=== PATIENT | female | born 1960 | race Caucasian/White ===

== ENCOUNTER → 2022-07-16 | Outpatient (CLI) | payer BC | LOC: MAMMO 11:27 | PROVIDERS: ATTEND Family Medicine | DX: Z12.31 Encounter for screening mammogram for malignant neoplasm of breast (principal) | CPT/HCPCS: 77067 ==

== ENCOUNTER → 2023-11-29 | Outpatient (REF) | payer BC | LOC: MAMMO 15:39 | PROVIDERS: ATTEND Family Medicine | DX: Z12.31 Encounter for screening mammogram for malignant neoplasm of breast (principal) | CPT/HCPCS: 77067 ==

== ENCOUNTER 2024-03-24 09:07 | Inpatient (IN) | payer BC, MEDICARE ==
[~2024-03-24] VITALS: Ht 170.2 cm; Wt 82.1 kg
[2024-03-24 09:42] LABS: BASOPHILS % 0.3 % (0.0-1.0); EOSINOPHILS % 0.4 % (0.0-6.0); HEMATOCRIT 39.4 % (34.2-44.1); HEMOGLOBIN 12.6 g/dL (12.0-16.0); LYMPHOCYTES # (AUTO) 1.2 (1.0-3.2); LYMPHOCYTES % 11.3 % (18.0-39.1); MEAN CORPUSCULAR HEMOGLOBIN 31.3 pg (28-32); MONOCYTES # (AUTO) 0.2 (0.2-0.8); MONOCYTES % 2.1 % (4.4-11.3); NEUTROPHILS % 85.5 % (38.7-80.0); PLATELET COUNT 263 x10e3/uL (140-360); RED BLOOD COUNT 4.02 x10e6/uL (3.6-5.1); RED CELL DISTRIBUTION WIDTH 12.5 % (11.7-14.4)
[2024-03-24 10:04] LABS: INR 0.91; PROTHROMBIN TIME 12.8 seconds (11.9-14.5)
[2024-03-24] MEDS: ONDANSETRON HCL INJ 2MG/ML 2ML 2 MG/ML VIAL IV STA ×2 (10:04→12:26)
[2024-03-24 10:05] LABS: PARTIAL THROMBOPLASTIN TIME 35.1 seconds (23.8-35.5)
[2024-03-24] MEDS: HYDROMORPHONE 1MG/1ML INJ IV STA ×3 (10:05→12:26)
[2024-03-24] MEDS: SODIUM CHLORIDE 0.9% 1000ML 1,000 ML IV STA (10:05)
[2024-03-24 10:10] LABS: ALANINE AMINOTRANSFERASE 22 IU/L (0-55); ALBUMIN/GLOBULIN RATIO 1.1 (0.8-2.0); ALKALINE PHOSPHATASE 64 IU/L (40-150); ANION GAP 17.8 mmol/L (8-16); BILIRUBIN,TOTAL 0.3 mg/dL (0.2-1.2); BLOOD UREA NITROGEN 14 mg/dL (7-26); BUN/CREATININE RATIO 18 (6-25); CALCIUM 10.2 mg/dL (8.4-10.2); CARBON DIOXIDE 18 mmol/L (22-29); CHLORIDE 106 mmol/L (98-107); CREATINE KINASE 50 IU/L (29-168); EST GLOMERULAR FILTRATION RATE 82 ML/MIN (>=60); GLUCOSE 224 mg/dL (74-118); LIPASE 55 U/L (8-78); MAGNESIUM 1.8 MG/DL (1.3-2.1); POTASSIUM 3.8 mmol/L (3.5-5.1); SODIUM 138 mmol/L (136-145); TOTAL PROTEIN 7.5 g/dL (6.5-8.1)
[2024-03-24 10:14] LABS: TROPONIN I < 0.05 ng/mL (0.0-0.40)
[2024-03-24] MEDS ORDERED: IOPAMIDOL 370 MG/ML 100 ML INFUS..BTL INJ ONE (10:23)
[2024-03-24] MEDS: DICYCLOMINE HCL 20 MG/2 ML VIAL IM ONE (12:26)
[2024-03-24] MEDS ORDERED: BISACODYL 10 MG SUPP PR PRN (12:30)
[2024-03-24] MEDS ORDERED: DEXTROSE 50% SYRINGE 50 ML IV PRN (12:30)
[2024-03-24] MEDS ORDERED: ONDANSETRON HCL INJ 2MG/ML 2ML 2 MG/ML VIAL IV PRN (12:30)
[2024-03-24] MEDS ORDERED: POLYETHYLENE GLYCOL 3350 17 GM PACK PO PRN (12:30)
[2024-03-24] MEDS ORDERED: ACETAMINOPHEN 325 MG TAB PO PRN (12:30)
[2024-03-24 12:34] VITALS: PULSE 67; RESP 16; TEMP 98.4
[2024-03-24] MEDS ORDERED: HYDROMORPHONE 1MG/1ML INJ IV PRN (12:45)
[2024-03-24] MEDS: SODIUM CHLORIDE 0.9% 1000ML 1,000 ML IV SCH (13:11)
[2024-03-24] MEDS: KETOROLAC TROMETHAMINE 30 MG/ML VIAL IV PRN (14:05)
[2024-03-24 15:42] VITALS: BP 149/70; PULSE 84; RESP 17; TEMP 98.9; O2SAT 98
[2024-03-24] MEDS: ONDANSETRON HCL INJ 2MG/ML 2ML 2 MG/ML VIAL IV PRN (16:17)
[2024-03-24] MEDS: HYDROMORPHONE 1MG/1ML INJ IV PRN (16:17)
[2024-03-24] MEDS: ENOXAPARIN SOD INJ 40 MG/0.4 ML SYR SC SCH (16:18)
[2024-03-24] MEDS: INSULIN LISPRO 100 UNIT/1 ML 3ML VIAL SQ SCH (16:22)
[2024-03-24 16:47] VITALS: BP 149/70; PULSE 84; RESP 17; TEMP 98.9; O2SAT 98
[2024-03-24 17:04] VITALS: BP 149/70; PULSE 84; RESP 17; TEMP 98.9; O2SAT 98
[2024-03-24 20:00] VITALS: BP 120/65; PULSE 88; RESP 20; TEMP 98.6; O2SAT 100
[2024-03-24] MEDS: CRESTOR 10MG PO SCH (21:22)
[2024-03-25] VITALS (9 sets, daily range): BP systolic 90–126; BP diastolic 48–70; PULSE 82–95; RESP 16–21; TEMP 97.9–100.1; O2SAT 96–100
[2024-03-25 06:18] LABS: BASOPHILS % 0.2 % (0.0-1.0); EOSINOPHILS % 0.2 % (0.0-6.0); HEMATOCRIT 33.6 % (34.2-44.1); HEMOGLOBIN 10.4 g/dL (12.0-16.0); LYMPHOCYTES % 16.9 % (18.0-39.1); MEAN CORPUSCULAR HEMOGLOBIN 31.1 pg (28-32); MEAN CORPUSCULAR VOLUME 100.6 fL (81-99); MONOCYTES % 8.9 % (4.4-11.3); NEUTROPHILS # (AUTO) 8.5 (2.1-6.9); NEUTROPHILS % 73.4 % (38.7-80.0); PLATELET COUNT 199 x10e3/uL (140-360); RED BLOOD COUNT 3.34 x10e6/uL (3.6-5.1); RED CELL DISTRIBUTION WIDTH 12.8 % (11.7-14.4); WHITE BLOOD COUNT 11.63 x10e3/uL (4.8-10.8)
[2024-03-25] MEDS: LEVOTHYROXINE SODIUM 100 MCG TAB PO SCH (06:32)
[2024-03-25 06:41] LABS: ALBUMIN/GLOBULIN RATIO 1.2 (0.8-2.0); ANION GAP 12.8 mmol/L (8-16); BILIRUBIN,TOTAL 0.4 mg/dL (0.2-1.2); CALCIUM 8.6 mg/dL (8.4-10.2); CREATININE, SERUM 0.73 mg/dL (0.57-1.11); MAGNESIUM 1.7 MG/DL (1.3-2.1); POTASSIUM 3.8 mmol/L (3.5-5.1); TOTAL PROTEIN 5.6 g/dL (6.5-8.1)
[2024-03-25 07:09] LABS: TROPONIN I 0.284 ng/mL (0-0.300)
[2024-03-25] MEDS: DOCUSATE SODIUM 100 MG CAP PO SCH (08:05)
[2024-03-25] MEDS: BUPROPION HCL 150 MG TABCR PO SCH (08:05)
[2024-03-25] MEDS: SENNOSIDES 8.6 MG TAB PO SCH (08:05)
[2024-03-25] MEDS: LISINOPRIL 20 MG TAB PO SCH (08:05)
[2024-03-25] MEDS: HYDROCHLOROTHIAZIDE 25 MG TAB PO SCH (08:06)
[2024-03-25 16:40] LABS: TROPONIN I 0.2 ng/mL (0-0.300)
[2024-03-26] VITALS (8 sets, daily range): BP systolic 85–110; BP diastolic 46–80; PULSE 79–160; RESP 18; TEMP 98.1–100.1; O2SAT 95–100
[2024-03-26 05:41] LABS: BASOPHILS % 0.3 % (0.0-1.0); EOSINOPHILS # (AUTO) 0.1 (0.0-0.4); EOSINOPHILS % 0.4 % (0.0-6.0); HEMATOCRIT 30.8 % (34.2-44.1); HEMOGLOBIN 9.3 g/dL (12.0-16.0); LYMPHOCYTES % 17.9 % (18.0-39.1); MEAN CORPUSCULAR HGB CONC 30.2 g/dL (31-35); MEAN CORPUSCULAR VOLUME 102.7 fL (81-99); MONOCYTES # (AUTO) 1.1 (0.2-0.8); NEUTROPHILS # (AUTO) 8.1 (2.1-6.9); PLATELET COUNT 173 x10e3/uL (140-360); RED CELL DISTRIBUTION WIDTH 13.2 % (11.7-14.4); WHITE BLOOD COUNT 11.36 x10e3/uL (4.8-10.8)
[2024-03-26 06:00] LABS: ANION GAP 12.7 mmol/L (8-16); CALCIUM 8.3 mg/dL (8.4-10.2); CREATININE, SERUM 1.16 mg/dL (0.57-1.11); POTASSIUM 3.7 mmol/L (3.5-5.1)
[2024-03-26 11:02] LABS: FERRITIN 281.2 ng/mL (4.63-204.00)
[2024-03-26 11:26] LABS: FOLATE 10.1 ng/mL (7.0-15.4)
[2024-03-26] MEDS: SODIUM CHLORIDE 0.9% 500ML 500 ML IV ONE (11:53)
[2024-03-27 03:36] VITALS: BP 92/56; PULSE 74; RESP 18; TEMP 98.7; O2SAT 99
[2024-03-27 05:31] LABS: BASOPHILS % 0.2 % (0.0-1.0); EOSINOPHILS # (AUTO) 0.1 (0.0-0.4); EOSINOPHILS % 0.8 % (0.0-6.0); HEMATOCRIT 27.6 % (34.2-44.1); HEMOGLOBIN 8.3 g/dL (12.0-16.0); LYMPHOCYTES # (AUTO) 1.4 (1.0-3.2); MEAN CORPUSCULAR HEMOGLOBIN 30.5 pg (28-32); MEAN CORPUSCULAR HGB CONC 30.1 g/dL (31-35); MEAN CORPUSCULAR VOLUME 101.5 fL (81-99); MONOCYTES # (AUTO) 0.8 (0.2-0.8); MONOCYTES % 9.2 % (4.4-11.3); NEUTROPHILS # (AUTO) 6.6 (2.1-6.9); NEUTROPHILS % 73.5 % (38.7-80.0); PLATELET COUNT 171 x10e3/uL (140-360); RED BLOOD COUNT 2.72 x10e6/uL (3.6-5.1); RED CELL DISTRIBUTION WIDTH 13.1 % (11.7-14.4); WHITE BLOOD COUNT 8.98 x10e3/uL (4.8-10.8)
[2024-03-27 05:51] LABS: ALBUMIN 2.3 g/dL (3.5-5.0); ALBUMIN/GLOBULIN RATIO 0.8 (0.8-2.0); ANION GAP 12.3 mmol/L (8-16); BILIRUBIN,TOTAL 0.7 mg/dL (0.2-1.2); CREATININE, SERUM 0.87 mg/dL (0.57-1.11); MAGNESIUM 1.8 MG/DL (1.3-2.1); TOTAL PROTEIN 5.3 g/dL (6.5-8.1)
[2024-03-27 05:52] LABS: POTASSIUM 3.3 mmol/L (3.5-5.1)
[2024-03-27 12:15] VITALS: BP 112/57; PULSE 83; RESP 19; TEMP 98.8; O2SAT 98
[2024-03-27] MEDS ORDERED: LIDOCAINE HCL 2% LOCAL INJ 5 ML SDV VIAL INJ ONE (13:29)
[2024-03-27] MEDS ORDERED: PROPOFOL IV EMULSION 10 MG/ML 20 ML VIAL ONE (13:29)
[2024-03-27] MEDS ORDERED: SUCCINYLCHOLINE CHLORIDE 20 MG/ML 10ML VIAL ONE ×2 (13:29→13:33)
[2024-03-27] MEDS ORDERED: ROCURONIUM BROMIDE 1 ML IV ONE (13:29)
[2024-03-27] MEDS ORDERED: FENTANYL CITRATE/PF 100MCG/2 ML INJ ONE (13:30)
[2024-03-27] MEDS ORDERED: ACETAMINOPHEN 1000 MG/100 ML 100 ML IV ONE (13:33)
[2024-03-27] MEDS ORDERED: SEVOFLURANE INHAL SOLN 250 ML PEN BTL ONE (13:33)
[2024-03-27] MEDS ORDERED: FAMOTIDINE 20 MG/2 ML VIAL IV ONE (14:52)
[2024-03-27] MEDS ORDERED: ONDANSETRON HCL INJ 2MG/ML 2ML 2 MG/ML VIAL ONE (14:52)
[2024-03-27] MEDS ORDERED: SUGAMMADEX SODIUM 200 MG/2 ML VIAL IV ONE (14:59)
[2024-03-27] MEDS ORDERED: TRAMADOL HCL 50 MG TAB PO PRN (16:15)
[2024-03-27] MEDS ORDERED: ACETAMINOPHEN 1000 MG/100 ML IV PRN (16:15)
[2024-03-27 20:00] VITALS: BP 124/61; PULSE 77; RESP 17; TEMP 97.6; O2SAT 99
[2024-03-27] MEDS: HYDROMORPHONE 1MG/1ML INJ IV PRN (20:30)
[2024-03-27 20:36] VITALS: BP 124/61; PULSE 77; RESP 17; TEMP 97.5; O2SAT 99
[2024-03-28 00:27] VITALS: BP 107/62; PULSE 70; RESP 17; TEMP 97.8; O2SAT 100
[2024-03-28 04:08] VITALS: BP 113/64; PULSE 82; RESP 17; TEMP 98.7; O2SAT 100
[2024-03-28 06:09] LABS: BASOPHILS % 0.6 % (0.0-1.0); EOSINOPHILS # (AUTO) 0.1 (0.0-0.4); EOSINOPHILS % 1.3 % (0.0-6.0); HEMATOCRIT 26.9 % (34.2-44.1); HEMOGLOBIN 8.1 g/dL (12.0-16.0); LYMPHOCYTES # (AUTO) 1.4 (1.0-3.2); MEAN CORPUSCULAR HEMOGLOBIN 30.6 pg (28-32); MEAN CORPUSCULAR HGB CONC 30.1 g/dL (31-35); MEAN CORPUSCULAR VOLUME 101.5 fL (81-99); MONOCYTES # (AUTO) 0.6 (0.2-0.8); MONOCYTES % 8.9 % (4.4-11.3); NEUTROPHILS # (AUTO) 4.8 (2.1-6.9); NEUTROPHILS % 68.9 % (38.7-80.0); PLATELET COUNT 191 x10e3/uL (140-360); RED BLOOD COUNT 2.65 x10e6/uL (3.6-5.1); RED CELL DISTRIBUTION WIDTH 13.1 % (11.7-14.4); WHITE BLOOD COUNT 6.99 x10e3/uL (4.8-10.8)
[2024-03-28 06:38] LABS: ALBUMIN 2.2 g/dL (3.5-5.0); ALBUMIN/GLOBULIN RATIO 0.7 (0.8-2.0); ANION GAP 14.4 mmol/L (8-16); BILIRUBIN,TOTAL 0.5 mg/dL (0.2-1.2); CALCIUM 8.1 mg/dL (8.4-10.2); CREATININE, SERUM 0.82 mg/dL (0.57-1.11); POTASSIUM 3.4 mmol/L (3.5-5.1); TOTAL PROTEIN 5.5 g/dL (6.5-8.1)
[2024-03-28 07:45] VITALS: BP 129/56; PULSE 94; RESP 18; TEMP 98.5; O2SAT 98
[2024-03-28 08:00] VITALS: BP 129/56; PULSE 94; RESP 18; TEMP 98.5; O2SAT 98
[2024-03-28 11:45] VITALS: BP 95/56; PULSE 75; RESP 18; TEMP 98.9; O2SAT 100
[2024-03-28 13:26] VITALS: BP 117/62; PULSE 84
== END 2024-03-28 15:15 | disposition home or self-care (01) | DRG 854 ==
LOC: ER 09:14 → ERHOLD 12:34 → MED/SURG2 13:19
PROVIDERS: ADMIT Internal Medicine; ATTEND Internal Medicine
PROC: 3E0333Z Introduction of Anti-inflammatory into Peripheral Vein, Percutaneous Approach (ICD-10-PCS; 2024-03-26)
PROC: 0FT44ZZ Resection of Gallbladder, Percutaneous Endoscopic Approach (ICD-10-PCS; principal; 2024-03-27 14:45)
DX: A41.9 Sepsis, unspecified organism (principal); K80.00 Calculus of gallbladder with acute cholecystitis without obstruction; K83.8 Other specified diseases of biliary tract; R11.2 Nausea with vomiting, unspecified; E11.9 Type 2 diabetes mellitus without complications; D53.9 Nutritional anemia, unspecified; E78.2 Mixed hyperlipidemia; E03.9 Hypothyroidism, unspecified; I10 Essential (primary) hypertension; D50.0 Iron deficiency anemia secondary to blood loss (chronic); Z88.5 Allergy status to narcotic agent; Q27.39 Arteriovenous malformation, other site
CPT/HCPCS: 36415; 71045; 74177; 74181; 76705; 80048; 80053; 80061; 82550; 82607; 82728; 82746; 82948; 83036; 83540; 83605; 83690; 83735; 84443; 84466; 84484; 85025; 85610; 85730; 87040; 88304; 93005; 99284; C1766; J0330; J1171; J1650; J1885; J2003; J2405; J2470; J2543; J7030; J7040; Q9967